=== PATIENT | female | born 1995 | race Caucasian/White ===

== ENCOUNTER 2021-07-26 18:15 | Outpatient (CLI) | payer OTHER, SELFPAY ==
[2021-07-26] VITALS (8 sets, daily range): BP systolic 132–146; BP diastolic 83–94; PULSE 58–64
[2021-07-26 19:00] LABS: Basophils Percent Auto 0.3 % (0.2-1.2); Eosinophils Absolute Auto 0.1 K/mm3 (0-0.3); Eosinophils Percent Auto 1.1 % (0-4.4); Hematocrit 31.8 % (37.0-47.0); Hemoglobin 10.6 g/dL (12.0-15.0); Immature Granulocyte Absolute 0.04 K/mm3 (0.00-0.031); Immature Granulocyte Percent A 0.5 % (0-0.5); Lymphocytes Absolute Auto 1.57 K/mm3 (0.9-3.2); Lymphocytes Percent Auto 17.7 % (18.3-44.2); Mean Corpuscular HGB Conc 33.3 g/dl (32-36); Mean Corpuscular Hemoglobin 28.2 pg (26-34); Mean Corpuscular Volume 84.6 fl (80-100); Mean Platelet Volume 11.1 fl (7.4-10.4); Monocytes Absolute Auto 0.7 K/mm3 (0.1-0.6); Monocytes Percent Auto 7.3 % (2.6-8.5); Neutrophils Absolute Auto 6.5 K/mm3 (1.3-6.7); Neutrophils Percent Auto 73.1 % (45.5-73.1); Platelet Count Result 218 k/mm3 (150-375); Red Blood Count 3.76 M/mm3 (4.2-5.4); Red Cell Distribution Width 12.5 % (11.5-14.5); White Blood Count 8.9 K/mm3 (4.5-10.0)
[2021-07-26 19:05] LABS: Add Urine Microscopic? YES; Appearance Urine Cloudy (Clear); Bacteria Urine 4+ /hpf; Bilirubin Urine Negative (Negative); Blood Urine Negative (Negative); Color Urine Yellow (Yellow); Glucose Urine UA Negative (Negative); Ketones Urine Trace mg/dL (Negative); Leukocyte Esterase Ur 2+ LEU/UL (NEGATIVE); Mucus Urine Rare /lpf; Nitrate Urine Negative (Negative); Protein Urine Negative (Negative); Specific Grav Ur 1.006 (1.001-1.035); Squamous Epithelial Cell Urine Many /hpf (Few); Urobilinogen Urine Negative mg/dL (<2.0); WBC Clumps Urine Present /HPF; WBC Urine 16-20 /hpf (0-3)
[2021-07-26 19:18] LABS: Alanine Aminotransferase 11 U/L (4-35); Albumin Level 3.4 g/dL (3.5-5.1); Alkaline Phosphatase 210 U/L (38-126); Anion Gap 8 mmol/L (8-16); Aspartate Amino Transferase 28 U/L (14-36); Bilirubin,Total 0.4 mg/dL (0.2-1.3); Blood Urea Nitrogen 5 mg/dL (7-17); Calcium 8.5 mg/dL (8.4-10.2); Carbon Dioxide 18 mmol/L (22-30); Chloride 107 mmol/L (98-107); Estimated Glomerular Filt Rate > 60; Glucose 77 mg/dL (65-110); Potassium 3.5 mmol/L (3.4-5.0); Sodium 133 mmol/L (137-145); Uric Acid 5.4 mg/dL (2.5-7.5)
[2021-07-26 19:19] LABS: Creatinine Urine 83.7 mg/dL; Total Protein Urine Random 13 mg/dL; Ur Ttl Prot Creatinine Ratio 0.16 mg/mg (0-0.20)
--- NOTE | 2021-07-26 19:40 | PC.NURSE ---
Addendum entered by Mitali Coyne RN 07/26/21 20:05: This information reported by the pt at 1840. Original Note: pt reports having a headache on and off since . Pt reports taking Tylenol only on Monday. No other pain medication taken since then. She also states she has had right upper quadrant pain that has been coming and going for the last week but currently denies pain. Pt called the nurses line today after checking her blood pressure at home and being 135/85. Dr. Rondon requested pt come in and have PIH work up done.
--- NOTE | 2021-07-26 19:47 | PC.NURSE ---
Dr. Dietz updated on pt. Labs and vital signs reported as well as pt having headache on and off since morning. Pt has not taken anything for the headache since Monday. Dr. Dietz also notified that pt reports having right upper quadrant pain on and off for the last week but denies having pain currently. aware and okay with pt taken Tylenol at home for headache and pt should schedule an appointment in the office to discuss blood pressures. Discharge orders received.
== END 2021-07-26 19:56 | disposition home or self-care (01) ==
LOC: ANHOBOP 18:22 → ANHOBPP 18:24
PROVIDERS: Student in an Organized Health Care Education/Training Program; Visit Provider Obstetrics & Gynecology
DX: O13.9 Gestational [pregnancy-induced] hypertension without significant proteinuria, unspecified trimester (principal); Z3A.00 Weeks of gestation of pregnancy not specified
CPT/HCPCS: 36415; 59025; 80053; 81001; 82570; 84156; 84550; 85025; 87077; 87086; 87088; 99199

== ENCOUNTER 2021-07-27 11:03 | Outpatient (CLI) | payer OTHER, SELFPAY ==
[2021-07-27] MEDS: ACETAMINOPHEN/BUTALBITAL/CAFFEINE 325-50-40 MG TABLET (FIORICET) 1 TAB PO (11:39)
[2021-07-27 11:42] VITALS: BP 134/85; PULSE 65
[2021-07-27 11:42] LABS: Basophils Percent Auto 0.3 % (0.2-1.2); Eosinophils Absolute Auto 0.2 K/mm3 (0-0.3); Eosinophils Percent Auto 2.1 % (0-4.4); Hematocrit 31.7 % (37.0-47.0); Hemoglobin 10.8 g/dL (12.0-15.0); Immature Granulocyte Absolute 0.04 K/mm3 (0.00-0.031); Immature Granulocyte Percent A 0.4 % (0-0.5); Lymphocytes Absolute Auto 1.22 K/mm3 (0.9-3.2); Lymphocytes Percent Auto 13.3 % (18.3-44.2); Mean Corpuscular HGB Conc 34.1 g/dl (32-36); Mean Corpuscular Volume 85.2 fl (80-100); Mean Platelet Volume 11.1 fl (7.4-10.4); Monocytes Absolute Auto 0.6 K/mm3 (0.1-0.6); Monocytes Percent Auto 6.5 % (2.6-8.5); Neutrophils Absolute Auto 7.1 K/mm3 (1.3-6.7); Neutrophils Percent Auto 77.4 % (45.5-73.1); Platelet Count Result 207 k/mm3 (150-375); Red Blood Count 3.72 M/mm3 (4.2-5.4); Red Cell Distribution Width 12.7 % (11.5-14.5); White Blood Count 9.2 K/mm3 (4.5-10.0)
[2021-07-27 11:45] VITALS: BP 130/84; PULSE 64; TEMP 37.2
[2021-07-27 11:50] LABS: Creatinine Urine 164.5 mg/dL; Total Protein Urine Random 13 mg/dL; Ur Ttl Prot Creatinine Ratio 0.08 mg/mg (0-0.20)
[2021-07-27 11:52] LABS: Add Urine Microscopic? YES; Appearance Urine Clear (Clear); Bacteria Urine 2+ /hpf; Bilirubin Urine Negative (Negative); Blood Urine Negative (Negative); Color Urine Yellow (Yellow); Glucose Urine UA Negative (Negative); Ketones Urine Negative (Negative); Leukocyte Esterase Ur 1+ LEU/UL (Negative); Mucus Urine Rare /lpf; Nitrate Urine Negative (Negative); Protein Urine Negative (Negative); Specific Grav Ur 1.015 (1.001-1.035); Squamous Epithelial Cell Urine Many /hpf (Few); Urobilinogen Urine Negative mg/dL (<2.0)
[2021-07-27 11:53] LABS: Alanine Aminotransferase 11 U/L (4-35); Albumin Level 3.4 g/dL (3.5-5.1); Alkaline Phosphatase 208 U/L (38-126); Anion Gap 7 mmol/L (8-16); Aspartate Amino Transferase 29 U/L (14-36); Bilirubin,Total 0.4 mg/dL (0.2-1.3); Blood Urea Nitrogen 5 mg/dL (7-17); Calcium 8.6 mg/dL (8.4-10.2); Carbon Dioxide 20 mmol/L (22-30); Chloride 107 mmol/L (98-107); Estimated Glomerular Filt Rate > 60; Glucose 83 mg/dL (65-110); Potassium 3.7 mmol/L (3.4-5.0); Sodium 134 mmol/L (137-145); Uric Acid 5.4 mg/dL (2.5-7.5)
[2021-07-27 12:00] VITALS: BP 132/79; PULSE 72
[2021-07-27 12:15] VITALS: BP 131/82; PULSE 68
[2021-07-27 12:30] VITALS: BP 124/84; PULSE 57
== END 2021-07-27 12:45 | disposition home or self-care (01) ==
LOC: ANHOBOP 11:07 → ANHOBPP 08-01 10:11
PROVIDERS: Visit Provider Obstetrics & Gynecology
DX: O13.3 Gestational [pregnancy-induced] hypertension without significant proteinuria, third trimester (principal); Z3A.36 36 weeks gestation of pregnancy
CPT/HCPCS: 36415; 59025; 80053; 81001; 82570; 84156; 84550; 85025; 99199; A9270

== ENCOUNTER 2021-08-01 23:15 | Inpatient (IN) | payer OTHER, SELFPAY ==
--- NOTE | 2021-08-01 23:15 | OBADM ---
This patient, Linh Oscar, admitted to the OB room OB Post 117 for observation. Patient/family oriented to hospital policies and general routines including ID bracelet, bed and alarms, visiting hours, pain management, procedures, bathroom and other care routines, personal items, smoking policy, room service/diet, and visiting hours. Patient/Family are encouraged to report perceived risks to care and to ask questions if they do not understand what they are told or what they should do.
--- NOTE | 2021-08-01 23:22 | PC.NURSE ---
pt report headaches since 07/22. Pt reports taking the medication prescribed by Dr. Rondon for her headache with less relief than the Tylenol she is taking. Pt has complaints of elevated blood pressure on her home blood pressure machine of 161/108 and 163/107, 15 min apart. Pt also complains of intermittent pain in her chest when laying down that is better when she stands or sits up.
[2021-08-01 23:37] VITALS: BP 157/101; PULSE 68
[2021-08-01 23:40] VITALS: BMI 30.8
[2021-08-01 23:41] LABS: Basophils Absolute Auto 0.1 K/mm3 (0.0-0.1); Basophils Percent Auto 0.5 % (0.2-1.2); Eosinophils Absolute Auto 0.2 K/mm3 (0-0.3); Eosinophils Percent Auto 1.7 % (0-4.4); Hematocrit 29.8 % (37.0-47.0); Hemoglobin 10.3 g/dL (12.0-15.0); Immature Granulocyte Absolute 0.05 K/mm3 (0.00-0.031); Immature Granulocyte Percent A 0.5 % (0-0.5); Lymphocytes Absolute Auto 1.82 K/mm3 (0.9-3.2); Lymphocytes Percent Auto 16.9 % (18.3-44.2); Mean Corpuscular HGB Conc 34.6 g/dl (32-36); Mean Corpuscular Hemoglobin 29.1 pg (26-34); Mean Corpuscular Volume 84.2 fl (80-100); Mean Platelet Volume 11.5 fl (7.4-10.4); Monocytes Absolute Auto 0.8 K/mm3 (0.1-0.6); Monocytes Percent Auto 7.5 % (2.6-8.5); Neutrophils Absolute Auto 7.8 K/mm3 (1.3-6.7); Neutrophils Percent Auto 72.9 % (45.5-73.1); Platelet Count Result 245 k/mm3 (150-375); Red Blood Count 3.54 M/mm3 (4.2-5.4); Red Cell Distribution Width 12.9 % (11.5-14.5); White Blood Count 10.7 K/mm3 (4.5-10.0)
[2021-08-01 23:45] VITALS: BP 163/101; PULSE 67
[2021-08-01 23:49] LABS: Add Urine Microscopic? YES; Appearance Urine Clear (Clear); Bacteria Urine Trace /hpf; Bilirubin Urine Negative (Negative); Blood Urine Negative (Negative); Color Urine Yellow (Yellow); Glucose Urine UA Negative (Negative); Ketones Urine Trace mg/dL (Negative); Leukocyte Esterase Ur Trace LEU/UL (NEGATIVE); Mucus Urine Rare /lpf; Nitrate Urine Negative (Negative); Protein Urine Negative (Negative); RBC Urine 0-2 /hpf (0-2); Specific Grav Ur 1.005 (1.001-1.035); Squamous Epithelial Cell Urine Few /hpf (Few); Urobilinogen Urine Negative mg/dL (<2.0); WBC Urine 0-3 /hpf (0-3)
[2021-08-01 23:51] LABS: Alanine Aminotransferase 18 U/L (4-35); Albumin Level 3.4 g/dL (3.5-5.1); Alkaline Phosphatase 245 U/L (38-126); Anion Gap 9 mmol/L (8-16); Aspartate Amino Transferase 49 U/L (14-36); Bilirubin,Total 0.5 mg/dL (0.2-1.3); Blood Urea Nitrogen 6 mg/dL (7-17); Calcium 8.9 mg/dL (8.4-10.2); Carbon Dioxide 19 mmol/L (22-30); Chloride 107 mmol/L (98-107); Estimated CRCL calculation 143 ml/min; Estimated Glomerular Filt Rate > 60; Glucose 102 mg/dL (65-110); Potassium 3.3 mmol/L (3.4-5.0); Sodium 135 mmol/L (137-145); Uric Acid 5.6 mg/dL (2.5-7.5)
[2021-08-02] VITALS (82 sets, daily range): BP systolic 131–169; BP diastolic 73–105; PULSE 65–97; RESP 18–22; TEMP 37.2–37.7; O2SAT 94–100
[2021-08-02 00:04] LABS: Creatinine Urine 51.3 mg/dL; Total Protein Urine Random 37 mg/dL; Ur Ttl Prot Creatinine Ratio 0.72 mg/mg (0-0.20)
--- NOTE | 2021-08-02 00:18 | PC.NURSE ---
Dr. Rondon updated on pt labs, VS, and reports of headache. Orders received to give the pt 25mg Benadryl, 5mg Ambien, 100mg Labetalol. Pt can have Tylenol Q6hr PRN. Order received to start 24hour urine on the pt and watch over night. Labs to be redrawn in the AM. Order received for Qshift NST and IV saline locked. Dr. Rondon to see pt in the AM.
[2021-08-02] MEDS: diphenhydrAMINE HCl CAP 25 MG CAPSULE PO (00:45)
[2021-08-02] MEDS: LABETALOL HCL 100 MG TABLET PO (00:45)
[2021-08-02] MEDS: ZOLPIDEM TARTRATE (*CRX) 5 MG TABLET PO (00:45)
--- NOTE | 2021-08-02 01:26 | PC.NURSE ---
24 hours urine started 08/02/21 at 0123.
[2021-08-02] MEDS: FAMOTIDINE 20 MG TABLET PO (02:05)
[2021-08-02] MEDS: NIFEdipine 10 MG CAPSULE PO (02:05)
[2021-08-02] MEDS: ACETAMINOPHEN 500 MG TABLET 1000 MG PO ×2 (02:31→08:23)
[2021-08-02 05:44] LABS: Hematocrit 27.8 % (37.0-47.0); Hemoglobin 9.5 g/dL (12.0-15.0); Mean Corpuscular HGB Conc 34.2 g/dl (32-36); Mean Corpuscular Hemoglobin 29.1 pg (26-34); Mean Corpuscular Volume 85.3 fl (80-100); Mean Platelet Volume 11.6 fl (7.4-10.4); Platelet Count Result 197 k/mm3 (150-375); Red Blood Count 3.26 M/mm3 (4.2-5.4); Red Cell Distribution Width 12.9 % (11.5-14.5); White Blood Count 10.5 K/mm3 (4.5-10.0)
[2021-08-02 06:00] LABS: Alanine Aminotransferase 16 U/L (4-35); Albumin Level 2.9 g/dL (3.5-5.1); Alkaline Phosphatase 218 U/L (38-126); Anion Gap 8 mmol/L (8-16); Aspartate Amino Transferase 46 U/L (14-36); Bilirubin,Total 0.4 mg/dL (0.2-1.3); Blood Urea Nitrogen 5 mg/dL (7-17); Calcium 8.4 mg/dL (8.4-10.2); Carbon Dioxide 18 mmol/L (22-30); Chloride 108 mmol/L (98-107); Estimated CRCL calculation 143 ml/min; Estimated Glomerular Filt Rate > 60; Glucose 84 mg/dL (65-110); Potassium 2.8 mmol/L (3.4-5.0); Sodium 134 mmol/L (137-145)
--- NOTE | 2021-08-02 06:04 | PC.NURSE ---
Dr. Rondon updated on pt blood pressures, pain and labs. Order received for pt to have 40meq BID and pt can have a regular diet. Dr. Rondon will be by to see the pt this AM.
--- NOTE | 2021-08-02 09:00 | PM.IMHP ---
H&P: HPI History of Present Illness Date/Time: 08/02/21 0845 26 y/o G1 at 37 4/7 weeks here with a headache and increased bp at home. Headache much better after Tylenol. Labs remarkable for mildly elevated AST. GBS bacteruria. Chief Complaint: High blood pressure Review of Systems Review of Systems: All systems reviewed & are unremarkable except as noted in HPI and below PMFSH Family History Family History Other No pertinent family history Social History Social History Smoking status: Never smoker Substance use: current Spiritual care concerns: No Meds Home Medications and Allergies Home Medications Medication Instructions Recorded Confirmed Type PNV cmb#95-ferrous fumarate-FA 1 tablet PO DAILY 07/22/21 08/01/21 History [] Allergies Allergy/AdvReac Type Severity Reaction Status Date / Time amoxicillin Allergy Hives Verified 07/22/21 13:30 Vital Signs Vital Signs - 24 hr 08/01/21 23:37 08/01/21 23:45 08/02/21 00:00 Temperature Pulse Rate 68 67 70 Respiratory Rate Blood Pressure 157/101 H 163/101 H 156/100 H 08/02/21 00:15 08/02/21 00:30 08/02/21 00:45 Temperature Pulse Rate 70 70 68 Respiratory Rate Blood Pressure 167/105 H 160/103 H 08/02/21 00:58 08/02/21 01:00 08/02/21 01:15 Temperature 37.4 C Pulse Rate 65 70 Respiratory Rate 18 Blood Pressure 168/101 H 169/100 H 08/02/21 01:30 08/02/21 01:50 08/02/21 02:00 Temperature Pulse Rate 75 75 77 Respiratory Rate Blood Pressure 146/84 H 162/98 H 165/99 H 08/02/21 02:15 08/02/21 02:30 08/02/21 02:45 Temperature Pulse Rate 73 92 82 Respiratory Rate Blood Pressure 164/96 H 131/74 141/81 H 08/02/21 03:00 08/02/21 03:15 08/02/21 03:30 Temperature Pulse Rate 76 81 79 Respiratory Rate Blood Pressure 143/79 H 138/78 138/81 08/02/21 04:00 08/02/21 05:00 08/02/21 06:41 Temperature Pulse Rate 80 83 65 Respiratory Rate Blood Pressure 139/82 132/76 155/92 H 08/02/21 08:20 08/02/21 11:13 08/02/21 11:15 Temperature 37.3 C Pulse Rate 71 72 Respiratory Rate Blood Pressure 147/100 H 145/92 H 08/02/21 12:01 08/02/21 13:01 08/02/21 15:01 Temperature Pulse Rate 82 67 74 Respiratory Rate Blood Pressure 141/98 H 146/101 H 145/88 H 08/02/21 16:01 08/02/21 17:01 Temperature Pulse Rate 88 75 Respiratory Rate Blood Pressure 154/89 H 144/89 H Exam Const: Orientation/consciousness: patient oriented x3 Other: Well-developed, well-nourished female in no acute distress. Neck: Thyroid: thyroid normal Lymphatic: no lymphadenopathy noted (in neck, axilla or inguinal nodes) Resp: Effort & Inspection: normal respiratory effort Auscultation: clear to auscultation bilaterally Cardio: Rate: regular rate Rhythm: regular rhythm Heart sounds: S1 normal heart sound present and S2 normal heart sound present GI: Other: ABD: Soft, nontender, gravid. NST reactive. TOCO: no contractions. No guarding or rebound tenderness. No hepatosplenomegaly. : General: Yes no CVA tenderness Other: Cervix 1/th/-3, vertex. Back/Spine/Pelvis: Back: no CVA tenderness Skin: General skin exam: normal color and no rashes or lesions noted Neuro: General: patient oriented x3 Extrem: Other: Extremities: nontender with no edema Psych: Mental Status: mental status grossly normal Affect: normal affect H&P: Results Labs Labs: Short CBC 08/01/21 08/02/21 08/02/21 Range/Units 23:32 05:33 17:10 WBC 10.7 H 10.5 H 14.6 H (4.5-10.0) K/mm3 Hgb 10.3 L 9.5 L 10.4 L (12.0-15.0) g/dL Hct 29.8 L 27.8 L 30.1 L (37.0-47.0) % Plt Count 245 197 246 (150-375) k/mm3 BMP 08/01/21 08/02/21 08/02/21 23:32 05:33 17:10 Sodium 135 L 134 L 134 L Potassium 3.3 L 2.8 L* 3.4 Chloride 107 108 H 107 Carbon Dioxide
[2021-08-02] MEDS: DINOPROSTONE 10 MG VAG INSERT VAGINAL (10:50)
[2021-08-02] MEDS: POTASSIUM CHLORIDE 20 MEQ TABLET.ER 40 MEQ PO (10:50)
[2021-08-02] MEDS: NIFEdipine 30 MG TAB.ER.24 PO (11:15)
[2021-08-02] MEDS: LACTATED RINGERS 1,000 ML 125 ML IV CONT ×3 (11:15→22:07)
[2021-08-02] MEDS: ceFAZolin 2 GM/D5W 50 ML 2 GM/50 ML BAG IVPB (11:16)
[2021-08-02] MEDS: ONDANSETRON INJ 4 MG/2 ML VIAL IV PUSH ×2 (14:26→22:08)
[2021-08-02] MEDS: fentaNYL CITRATE INJ (*CRX) 100 MCG/2 ML VIAL IV PUSH ×3 (14:26→19:16)
--- NOTE | 2021-08-02 16:31 | WPDANESEPP ---
Anes - Eval Pre Procedure Procedure: labor epidural Date/Time: 08/02/21 16:31 Surgeon: kavitha Pre Op Diagnosis: High Blood Pressure Patient Data Age: 26 Gender: F Height: 1.73 m Weight: 92 kg Last Vital Signs Temp 37.3 C 08/02/21 11:15 Pulse 88 08/02/21 16:01 Resp 18 08/02/21 00:58 BP 154/89 H 08/02/21 16:01 Allergies Allergy/AdvReac Type Severity Reaction Status Date / Time amoxicillin Allergy Hives Verified 07/22/21 13:30 Home Medications Medication Instructions Recorded Confirmed Type PNV cmb#95-ferrous fumarate-FA 1 tablet PO DAILY 07/22/21 08/01/21 History [] Laboratory Tests 08/01/21 08/01/21 08/01/21 23:32 23:32 23:32 WBC 10.7 K/mm3 H K/mm3 (4.5-10.0) RBC 3.54 M/mm3 L M/mm3 (4.2-5.4) Hgb 10.3 g/dL L g/dL (12.0-15.0) Hct 29.8 % L % (37.0-47.0) MCV 84.2 fl fl (80-100) MCH 29.1 pg pg (26-34) MCHC 34.6 g/dl g/dl (32-36) RDW 12.9 % % (11.5-14.5) Plt Count 245 k/mm3 k/mm3 (150-375) MPV 11.5 fl H fl (7.4-10.4) Immature Gran % (Auto) 0.5 % % (0-0.5) Neut % (Auto) 72.9 % % (45.5-73.1) Lymph % (Auto) 16.9 % L % (18.3-44.2) [place] % (Auto) 7.5 % % (2.6-8.5) Eos % (Auto) 1.7 % % (0-4.4) Baso % (Auto) 0.5 % % (0.2-1.2) Lymph # (Auto) 1.82 K/mm3 K/mm3 (0.9-3.2) [place] # (Auto) 0.8 K/mm3 H K/mm3 (0.1-0.6) Eos # (Auto) 0.2 K/mm3 K/mm3 (0-0.3) Baso # (Auto) 0.1 K/mm3 K/mm3 (0.0-0.1) Abs Immat Gran (auto) 0.05 K/mm3 H K/mm3 (0.00-0.031) Absolute Neuts (auto) 7.8 K/mm3 H K/mm3 (1.3-6.7) Absolute Nucleated RBC 0.0 K/mm3 K/mm3 (0.0-0.012) Nucleated RBC % 0.0 % % (0.0-0.2) Sodium Potassium Chloride Carbon Dioxide Anion Gap BUN Creatinine Estim Creat Clear Calc Estimated GFR Glucose Uric Acid Calcium Total Bilirubin AST ALT Alkaline Phosphatase Total Protein Albumin Urine Color Yellow (Yellow) Urine Appearance Clear (Clear) Urine pH 6.0 (5.0-9.0) Ur Specific [place] 1.005 (1.001-1.035) Urine Protein Negative mg/dL mg/dL (Negative) Urine Glucose (UA) Negative mg/dL mg/dL (Negative) Urine Ketones Trace mg/dL mg/dL (Negative) Ur Blood (Man) Negative (Negative) Urine Nitrate Negative (Negative) Urine Bilirubin Negative (Negative) Urine Urobilinogen Negative mg/dL mg/dL (<2.0) Ur Leukocyte Esterase Trace TRUE/UL H TRUE/UL (NEGATIVE) Urine RBC 0-2 /hpf /hpf (0-2) Urine WBC 0-3 /hpf /hpf (0-3) Ur Squamous Epith Cells Few /hpf /hpf (Few) Urine Bacteria Trace /hpf /hpf Urine Mucus Rare /lpf /lpf U Random Total Protein 37 mg/dL mg/dL Urine Creatinine 51.3 mg/dL mg/dL Protein/Creat Ratio 2 0.72 mg/mg H mg/mg (0-0.20) 08/01/21 08/02/21 08/02/21 23:32 05:33 05:33 WBC 10.5 K/mm3 H K/mm3 (4.5-10.0) RBC 3.26 M/mm3 L M/mm3 (4.2-5.4) Hgb 9.5 g/dL L g/dL (12.0-15.0) Hct 27.8 % L % (37.0-47.0) MCV 85.3 fl fl (80-100) MCH 29.1 pg pg (26-34) MCHC 34.2 g/dl g/dl (32-36) RDW 12.9 % % (11.5-14.5) Plt Count 197 k/mm3 k/mm3 (150-375) MPV 11.6 fl H fl (7.4-10.4) Immature Gran % (Auto) Neut % (Auto) Lymph % (Auto) [place] % (Auto) Eos % (Auto) Baso % (Auto) Lymph # (Auto) [place] #
[2021-08-02 17:21] LABS: Hematocrit 30.1 % (37.0-47.0); Hemoglobin 10.4 g/dL (12.0-15.0); Mean Corpuscular HGB Conc 34.6 g/dl (32-36); Mean Corpuscular Hemoglobin 29.1 pg (26-34); Mean Corpuscular Volume 84.1 fl (80-100); Mean Platelet Volume 11.8 fl (7.4-10.4); Platelet Count Result 246 k/mm3 (150-375); Red Blood Count 3.58 M/mm3 (4.2-5.4); White Blood Count 14.6 K/mm3 (4.5-10.0)
[2021-08-02 17:31] LABS: Alanine Aminotransferase 18 U/L (4-35); Albumin Level 3.5 g/dL (3.5-5.1); Alkaline Phosphatase 265 U/L (38-126); Anion Gap 8 mmol/L (8-16); Aspartate Amino Transferase 46 U/L (14-36); Bilirubin,Total 0.5 mg/dL (0.2-1.3); Blood Urea Nitrogen 3 mg/dL (7-17); Calcium 8.6 mg/dL (8.4-10.2); Carbon Dioxide 19 mmol/L (22-30); Chloride 107 mmol/L (98-107); Estimated CRCL calculation 143 ml/min; Estimated Glomerular Filt Rate > 60; Glucose 84 mg/dL (65-110); Potassium 3.4 mmol/L (3.4-5.0); Sodium 134 mmol/L (137-145); Uric Acid 5.5 mg/dL (2.5-7.5)
[2021-08-02] MEDS: OXYTOCIN 30 UNITS/NS 500 ML 30 UNITS/500 ML BAG IV CONT (22:21)
[2021-08-03] VITALS (342 sets, daily range): BP systolic 115–176; BP diastolic 68–117; PULSE 76–143; RESP 16–20; TEMP 36.6–38.1; O2SAT 84–100
[2021-08-03] MEDS: NIFEdipine 30 MG TAB.ER.24 PO (08:17)
[2021-08-03] MEDS: LACTATED RINGERS 1,000 ML 125 ML IV CONT ×3 (08:17→21:12)
[2021-08-03] MEDS: CALCIUM CARBONATE (TUMS) 500 MG (200 MG ELEMENTAL) PO (08:24)
--- NOTE | 2021-08-03 08:45 | PM.OBPNLAB ---
Pain Control Date/time seen: 08/03/21 5530 Comments: Comfortable with epidural. Oxytocin running. BP stable. Pelvic Exam Dilation (cm): 2 Effacement (%): 80 station: -2 Comments: AROM with clear fluid. Vertex. IUPC placed. Contractions Contraction frequency: 3 Contraction pattern: Regular Status status: Category l Assessment and Plan Comments: A: IUP at term with gestational hypertension. P: Cervidil has been withdrawn, receiving oxytocin. Ancef for GBS bacteruria. Anticipate .
[2021-08-03] MEDS: fentaNYL CITRATE INJ (*CRX) 100 MCG/2 ML VIAL 50 MCG IV PUSH (13:25)
[2021-08-03 13:56] LABS: Amphetamine Screen Urine Negative (Negative); Barbiturate Screen Urine Positive (Negative); Benzodiazepines Screen Urine Negative (Negative); Cannabinoid Screen Urine Positive (Negative); Cocaine Screen Urine Negative (Negative); Methadone Screen Urine Negative (Negative); Opiate Screen Urine Negative (Negative); Phencyclidine Screen Urine Negative (Negative)
[2021-08-03 14:33] LABS: Rapid Plasma Reagin Non-Reactive (NonReactive)
--- NOTE | 2021-08-03 18:16 | PM.OBPNLAB ---
Pain Control Date/time seen: 08/03/21 18:16 Feels pressure on tailbone. Pelvic Exam Dilation (cm): 5 Effacement (%): 90 station: 0 Contractions Contraction frequency: 2 Contraction pattern: Regular Status status: Category l Assessment and Plan Comments: Continue labor
[2021-08-03] MEDS: FAMOTIDINE 20 MG/2 ML VIAL IV PUSH (18:23)
[2021-08-03] MEDS: NIFEdipine 10 MG CAPSULE PO (19:06)
[2021-08-03] MEDS: LIDOCAINE HCL 1% PF 30 ML VIAL (22:30)
[2021-08-03] MEDS: miSOPROStol 200 MCG TABLET 1000 MCG RECTAL (22:40)
--- NOTE | 2021-08-03 22:52 | PM.OBPRVD ---
OB - Delivery Note Procedure Delivery date: 08/03/21 Procedure: Induction of labor with events: Induced HTN Induction method: per pitocin protocol and per cervidil protocol Delivery monitor: external FHT, external uterine and internal uterine Route of delivery: Laceration Description: Perineal - 2nd Degree Delivery repair: vicryl (3-0) Specimen: Yes (cord blood, placenta) Quantitative Blood Loss (ml): 850 Anesthesia type: Epidural Disposition: PACU Complications: Uterine atony Narrative: 26 y/o G1 at 37 5/7 weeks gestation who presented to the hospital with elevated blood pressure and headache. She was admitted for induction of labor for gestational hypertension. She was given Ancef for GBS bacteruria. Cervidil was placed, followed by IV oxytocin. Amniotomy was performed with return of clear fluid. She received an epidural for pain control. Her labor progressed and her cervix dilated completely. She pushed with good effort and delivered the 's head to the perineum. A loose nuchal cord was splinted and the body delivered. The cord was reduced. The nose and mouth were bulb suctioned. After a delay, the cord was clamped and cut. The was handed off the field. Cord blood was collected. The placenta delivered spontaneously and was grossly normal in appearance. The usual 3 vessel cord was noted. A second degree midline perineal laceration was sustained. This was infiltrated with 10 mL of 1% lidocaine, then reapproximated using 3 0 Vicryl in the usual layered fashion. She was given IV oxytocin, as well as 1000 mcg Cytotec ND for uterine atony. Excellent hemostasis resulted as did excellent reapproximation of the normal anatomy. Needle and instrument counts were correct. The patient was taken to recovery room in stable condition. The infant went to the nursery in stable condition. I was present and scrubbed for the entire delivery. Baby Date of : 08/03/21 Time of : 22:20 Weeks of gestation at delivery: 37 Infant gender: Female Weight (pounds): 6 Weight (ounces): 15 presentation: vertex position: Right Occiput Anterior Placenta delivery description: Spontaneous and Normal Configuration cord vessel description: 3 Vessels, Nuchal Cord and Delayed Cord Clamping score one minute: 9 score five minutes: 9
--- NOTE | 2021-08-03 22:57 | PM.OBDSVD ---
DS: Admitting Diagnosis Discharge Date 08/05/21 Admitting Diagnosis Elevated bp Headache IUP at 37 weeks DS: Discharge Diagnosis Discharge Diagnosis (1) Gestational hypertension: Code(s): O13.9 - Gestational [-induced] hypertension without significant proteinuria, unspecified trimester Status: Acute (2) GBS bacteriuria: Code(s): R82.71 - Bacteriuria Status: Acute OB - DS: Summary OB Procedures : PIH Mgmt OB Procedures Intrapartum: Spontaneous Vag Delivery OB Procedures: : None DS: Data Data Completed and Pending Labs on day of discharge: Labs from last 24 hours 08/03/21 08/02/21 13:25 17:10 Urine Opiates Screen Negative Urine Methadone Screen Negative Ur Barbiturates Screen Positive A Ur Phencyclidine Scrn Negative Ur Amphetamine Screen Negative U Benzodiazepines Scrn Negative Urine Cocaine Screen Negative U Cannabinoids Screen Positive A RPR Non-reactive Discharge Plan Discharge Attending physician on discharge: Josue Rondon Discharging Clinician: Josue Rondon Patient Disposition: Home, Self-Care Activity: pelvic rest Diet: regular Discharge Instructions: Call or return if temperature above 100.4? F, increased abdominal pain, increased vaginal bleeding or any new problems. Stand Alone Forms: General Discharge Information Follow-up/Referrals: Josue Rondon MD [Physician] - 1 Week Discharge Medications: New ferrous sulfate 325 mg (65 mg iron) tablet 325 mg PO DAILY Qty: 30 RF: 0 ibuprofen 600 mg tablet 600 mg PO Q6H PRN (Reason: cramps) Qty: 30 RF: 0 nifedipine [Procardia XL] 30 mg tablet extended release 24hr 30 mg PO DAILY Qty: 30 RF: 1 Continued PNV cmb#95-ferrous fumarate-FA [] 28 mg iron- 800 mcg Tablet 1 tablet PO DAILY RF: 0 Date of admission: 08/02/21 09:00 Primary Care Provider: PHYSICIAN,UTILIZATION REVIEWER Admitting Provider: Josue Rondon Attending physician on admission: Josue Rondon Condition: Stable
[2021-08-03] MEDS: OXYTOCIN 30 UNITS/NS 500 ML 30 UNITS/500 ML BAG 125 UNITS IV CONT (23:12)
[2021-08-04] VITALS (13 sets, daily range): BP systolic 129–160; BP diastolic 81–97; PULSE 74–107; RESP 16–18; TEMP 36.2–37.4; O2SAT 100
[2021-08-04] MEDS: ACETAMINOPHEN 325 MG TABLET 650 MG PO (00:04)
[2021-08-04] MEDS: IBUPROFEN 600 MG TABLET PO ×4 (00:06→22:00)
[2021-08-04] MEDS: WITCH HAZEL 40 PADS 1 PAD TOPICAL ×2 (00:06→16:33)
[2021-08-04] MEDS: BENZOCAINE 20% AER SPR (*SP) 56 GM CAN 1 SPRAY TOPICAL ×2 (00:07→16:33)
--- NOTE | 2021-08-04 01:48 | OBPPTRN ---
Patient transferred to post room #279 via W/C. Support person present. Oriented to unit, room, information board, rooming in, admission packet and security measures. Patient verbalizes understanding.
[2021-08-04 05:20] LABS: Hematocrit 24.7 % (37.0-47.0); Hemoglobin 8.3 g/dL (12.0-15.0)
--- NOTE | 2021-08-04 07:41 | WPDANLDPN2 ---
Anes-Prog Note L&D Date/Time: 08/04/21 07:41 Comfortable throughout: labor and delivery Neuraxial method: epidural Epidural/Spinal procedure site: clean & non-tender Neuro status: Neuro function grossly intact. Cardiovascular status: normal Respiratory status: normal Airway patency: baseline Mental status: baseline Post-Op hydration status: normal Vital Signs: Last Vital Signs Temp 98.5 F 08/04/21 02:15 Pulse 85 08/04/21 02:15 Resp 16 08/04/21 02:15 BP 145/89 H 08/04/21 02:15 Pulse Ox 97 08/03/21 22:23 Pain score (VAS): 03/02 I/O: Intake & Output 08/03/21 08/03/21 08/04/21 15:59 23:59 07:59 Intake Total 50 2000 Output Total 1200 710 Balance 50 800 -710 Post-procedural complaints: none Patient feedback: Patient satisfied with anesthetic care.
[2021-08-04] MEDS: DOCUSATE SODIUM 100 MG CAPSULE PO ×2 (08:23→16:33)
[2021-08-04] MEDS: POLYSACCHARIDE IRON COMPLEX 150 MG CAPSULE PO ×2 (08:25→16:33)
[2021-08-04] MEDS: MULTIVIT/MIN/PREN/FOL AC/IRON TABLET 1 TAB PO (08:25)
[2021-08-04] MEDS: NIFEdipine 30 MG TAB.ER.24 PO (10:29)
--- NOTE | 2021-08-04 11:34 | PC.NURSE ---
Breast pump provided due to ineffective feeding and jaundice. Instructions given on breast pump care and usage, pumping schedule, nipple care, and collection and storage of breast milk. Encouraged [id number], breast massage and manual expression to stimulate supply. Assessed patient for correct flange size, placement and draw. Patient verbalizes and demonstrates understanding of instructions.
--- NOTE | 2021-08-04 13:16 | PC.NURSE ---
0840 - Consulted with patient, reviewed infant feeding cues, frequencies, duration of feedings, feeding elimination flow sheet, and signs of adequate intake. Demonstrated stimulation techniques to wake for feeding. Assisted with to breast. Reviewed positioning/alignment, holding breast and asymmetrical latch on. was unable to latch correctly and demonstrated a shallow latch. Nipple care reviewed. received formula on the director of convention services at 0400. 0900 - placed skin to skin with instructions for mother to call out for RN assistance when see visualizes feeding cues, if she is unable to latch infant for feeding or she has discomfort with nursing. Instructed feeding should be initiated three hours from start of last feeding or if feeding cues are noted before. Mother voiced understanding of information shared. 0950 - Infant is sleeping in moms arms in the cradle hold and mom states she has not attempted to breastfeed. RN encouraged wake/stimulation/S2S vertically between rest. Primary RN reported she bottle fed related to TCB elevated after 12 hours of life. 1200 - Breast pump provided due to TCB elevated. Instructions given on breast pump care and usage, pumping schedule, nipple care, and collection and storage of breast milk. Encouraged [id number], breast massage and manual expression to stimulate supply. Pumping will be logged on feeding sheet. Assessed patient for correct flange size, placement and draw. Patient verbalizes and demonstrates understanding of instructions.
--- NOTE | 2021-08-04 13:23 | PM.OBPNVD ---
OB - PN: Subj Subjective Date/time seen: 08/04/21 13:23 Narrative: Pain OK. Headache resolved. OB - PN: Obj Data Labs CBC & Chem 7: 08/04/21 04:42 08/02/21 17:10 Labs: Laboratory Results - last 24 hr 08/02/21 08/03/21 08/04/21 17:10 13:25 04:42 Hgb 8.3 L Hct 24.7 L Urine Opiates Screen Negative Urine Methadone Screen Negative Ur Barbiturates Screen Positive A Ur Phencyclidine Scrn Negative Ur Amphetamine Screen Negative U Benzodiazepines Scrn Negative Urine Cocaine Screen Negative U Cannabinoids Screen Positive A RPR Non-reactive OB - PN A/P Plan Comments: A: PPD#1, doing well. Gestational hypertension. P: Continue Procardia XL 30 mg daily. Routine care. Exam Psych: Other: AVSS Urine output: 2200mL ABD soft, nontender, fundus firm EXT nontender, 1+ pitting edema
[2021-08-05 03:32] VITALS: BP 136/84; PULSE 78; RESP 18; TEMP 36.6
[2021-08-05 07:30] VITALS: BP 122/83; PULSE 67; RESP 18; TEMP 36.7; O2SAT 96
--- NOTE | 2021-08-05 08:56 | PM.OBPNVD ---
OB - PN: Subj Subjective Date/time seen: 08/05/21 08:56 Narrative: Pain OK. Would like to go home. OB - PN: Obj Data Labs CBC & Chem 7: 08/04/21 04:42 08/02/21 17:10 OB - PN A/P Plan Comments: A: PPD#2, doing well. P: Home to f/u bp check in 1 week. Exam Psych: Other: AVSS ABD soft, nontender, fundus firm EXT nontender
[2021-08-05] MEDS: POLYSACCHARIDE IRON COMPLEX 150 MG CAPSULE PO (09:22)
[2021-08-05] MEDS: DOCUSATE SODIUM 100 MG CAPSULE PO (09:22)
[2021-08-05] MEDS: MULTIVIT/MIN/PREN/FOL AC/IRON TABLET 1 TAB PO (09:22)
[2021-08-05] MEDS: IBUPROFEN 600 MG TABLET PO (09:22)
[2021-08-05] MEDS: NIFEdipine 30 MG TAB.ER.24 PO (09:22)
--- NOTE | 2021-08-05 10:00 | PC.NURSE ---
Patient viewed the discharge video Mother & Baby Care, The First Two Weeks online. Patient was given the opportunity and encouraged to ask questions. Patient verbalized understanding of information shared and has been given the mother/baby guide for home reference.
[2021-08-06 08:37] VITALS: BP 141/95; PULSE 74; RESP 20; TEMP 36.7; O2SAT 100
== END 2021-08-05 10:38 | disposition home or self-care (01) | DRG 807 ==
LOC: ANHOBPP 08-02 09:09 → ANHLDR 08-02 10:51 → ANHOB2 08-04 02:12
PROVIDERS: Admitting Provider Obstetrics & Gynecology; Visit Provider Obstetrics & Gynecology
DX: O13.4 Gestational [pregnancy-induced] hypertension without significant proteinuria, complicating childbirth (principal); Z37.0 Single live birth; O14.04 Mild to moderate pre-eclampsia, complicating childbirth; O99.824 Streptococcus B carrier state complicating childbirth; O42.92 Full-term premature rupture of membranes, unspecified as to length of time between rupture and onset of labor; O69.81X0 Labor and delivery complicated by cord around neck, without compression, not applicable or unspecified; O70.1 Second degree perineal laceration during delivery; Z3A.37 37 weeks gestation of pregnancy
CPT/HCPCS: 36415; 80053; 80307; 81001; 82570; 84156; 84550; 85014; 85018; 85025; 85027; 86592; 86850; 86900; 86901; 87077; 87086; 87088; 88307; A9270; J0131; J0690; J2405; J2590; J2795; J3010; J7120